=== PATIENT | female | born 1955 | race Caucasian/White ===

== ENCOUNTER → 2017-06-30 | Outpatient (CLI) | payer BC ==
--- NOTE | 2017-06-30 15:46 | REPMRS ---
Patient History The patient states she had a clinical breast exam in 07/01 Patient is postmenopausal. No known family history of cancer. Digital Woman Screen Mammo: June 30, 2017 - Exam #: [id number] Bilateral CC and MLO view(s) were taken. Technologist: Shahnaz Ziegler, Technologist Prior study comparison: June 29, 2016, digital woman screen mammo performed at [facility]. June 27, 2015, digital woman screen mammo performed at [facility]. FINDINGS: There are scattered fibroglandular densities. There has been no change in the appearance of the mammogram from the prior studies. There is a mild amount of residual fibroglandular tissue which is fairly symmetric. There is no interval development of dominant mass, architectural distortion, or clustered microcalcification suggestive of malignancy. ASSESSMENT: BI-RADS/ACR category 1 mammogram. Negative. Recommendation Routine screening mammogram in 1 year (for women over age 40). This mammogram was interpreted with the aid of an FDA-approved computer-aided dectection system. Electronically Signed By: Mino Gonzalez MD 06/30/17 [id number]
== END ==
LOC: M WHC 13:59
PROVIDERS: ATTEND Nurse Practitioner Women's Health
DX: Z12.31 Encounter for screening mammogram for malignant neoplasm of breast (principal); Z78.0 Asymptomatic menopausal state

== ENCOUNTER → 2018-07-24 | Outpatient (CLI) | payer BC | LOC: M WHC 14:58 | DX: Z12.31 Encounter for screening mammogram for malignant neoplasm of breast (principal) | CPT/HCPCS: 77067 ==

== ENCOUNTER → 2019-09-11 | Outpatient (CLI) | payer BC ==
--- NOTE | 2019-09-11 13:07 | REPMRS ---
Patient History The patient states she had a clinical breast exam in No known family history of cancer. 3D TOMOSYNTHESIS WAS PERFORMED. [facility] for [facility] 6.5%. Digital Woman Screen Mammo: September 11, 2019 - Exam #: [id number] Bilateral CC and MLO view(s) were taken. Technologist: Dionne Rodrigez, Technologist Prior study comparison: July 24, 2018, bilateral digital woman screen mammo performed at [facility]. June 30, 2017, digital woman screen mammo performed at [facility]. FINDINGS: The breast tissue is heterogeneously dense. This may lower the sensitivity of mammography. There has been no change in the appearance of the mammogram from the prior studies. There is a moderate amount of residual fibroglandular tissue which is fairly symmetric. There is no interval development of dominant mass, areas of architectural distortion, or clustered microcalcification typical of malignancy. Assessment: BI-RADS/ACR category 1 mammogram. Negative Mammogram. Recommendation Routine screening mammogram in 1 year (for women over age 40). This mammogram was interpreted with the aid of an FDA-approved computer-aided dectection system. Electronically Signed By: Mino Gonzalez MD 09/11/19 [id number]
--- NOTE | 2019-09-18 15:53 | DEXA ---
AP SPINE L1 - L4 1.256 0.5 2.0 LT FEMUR TOTAL 1.100 0.7 1.9 LT NECK 0.993 -0.3 1.1 RT FEMUR TOTAL 1.155 1.2 2.3 RT NECK 1.032 0.0 1.4 TOTAL BODY TOTAL OTHER COMMENTS: Normal bone densitometry of the spine and hips. The increased density of the spine does not represent a significant change. The decreased density of the left hip does represent a significant change. The decreased density of the right hip does represent a significant change. The density of the spine has decreased 3.1 % since the initial exam on 03/04/2005. The spine density has increased 1.2% since the most recent exam on 11/12/2010. The density of the left hip has decreased 9.3% since the initial exam on 03/04/2005. The density of the left hip has decreased 6.8% since the most recent exam on 11/12/2010. The density of the right hip has decreased 9.3% since the initial exam on 03/04/2005. The density of the right hip has decreased 7.5% since the most recent exam on 11/12/2010. FOLLOW-UP: Recommendation for the next bone density exam: 5 years. [facility]
== END ==
LOC: M WHC 10:26
PROVIDERS: ATTEND Nurse Practitioner Women's Health
DX: Z13.820 Encounter for screening for osteoporosis (principal); Z78.0 Asymptomatic menopausal state; M85.9 Disorder of bone density and structure, unspecified

== ENCOUNTER → 2020-11-11 | Outpatient (CLI) | payer MEDICARE, BC ==
--- NOTE | 2020-11-11 16:36 | REPMRS ---
Patient History The patient states she had a clinical breast exam in October 2020. No known family history of cancer. Digital Woman Screen Mammo: November 11, 2020 - Exam #: [id number] Bilateral CC and MLO view(s) were taken. Technologist: Edwige Cuellar, Technologist Prior study comparison: September 11, 2019, bilateral digital woman screen mammo performed at [facility]. July 24, 2018, bilateral digital woman screen mammo performed at [facility]. June 30, 2017, digital woman screen mammo performed at [facility]. FINDINGS: There are scattered fibroglandular densities. The Volpara volumetric breast density category is:B. There has been no change in the appearance of the mammogram from the prior studies. There is a mild amount of scattered fibroglandular density which is fairly symmetric. There is no interval development of dominant mass, architectural distortion, or grouped microcalcification suggestive of malignancy. 3-D tomosynthesis shows no additional findings. Assessment: BI-RADS/ACR category 1 mammogram. Negative Mammogram. Recommendation Routine screening mammogram of both breasts in 1 year (for women over age 40). This patient's [facility] Lifetime Breast Cancer Risk is estimated at 5.9 %. This mammogram was interpreted with the aid of an FDA-approved computer-aided dectection system. Electronically Signed By: Bijan Myers MD 11/11/20 [id number]
== END ==
LOC: M WHC 13:36
PROVIDERS: ATTEND Nurse Practitioner Women's Health
DX: Z12.31 Encounter for screening mammogram for malignant neoplasm of breast (principal)